=== PATIENT | female | born 1960 | race Hispanic/Latino ===

== ENCOUNTER → 2019-07-10 | Outpatient (CLI) | payer OTHER | LOC: MAMMO 13:38 | PROVIDERS: ATTEND Family Medicine | DX: Z12.31 Encounter for screening mammogram for malignant neoplasm of breast (principal) | CPT/HCPCS: 77067 ==

== ENCOUNTER → 2020-07-18 | Outpatient (CLI) | payer OTHER | LOC: MAMMO 09:45 | PROVIDERS: ATTEND Family Medicine | DX: Z12.31 Encounter for screening mammogram for malignant neoplasm of breast (principal) | CPT/HCPCS: 77067 ==

== ENCOUNTER 2021-04-26 20:11 | Emergency (ER) | payer OTHER ==
[~2021-04-26] VITALS: Ht 157.5 cm; Wt 87.5 kg
[2021-04-26] MEDS ORDERED: AZITHROMYCIN250 MG PO (20:36)
[2021-04-26] MEDS ORDERED: BENZONATATE200 MG PO (20:36)
[2021-04-26] MEDS ORDERED: ACETAMINOPHEN500 MG PO (20:36)
[2021-04-26] MEDS ORDERED: IBUPROFEN IB200 MG PO (20:36)
[2021-04-26] MEDS ORDERED: TAMIFLU75 MG PO (20:46)
== END 2021-04-26 20:55 | disposition home or self-care (01) ==
LOC: FSED 20:38
DX: R50.9 Fever, unspecified (principal); J10.1 Influenza due to other identified influenza virus with other respiratory manifestations; R00.0 Tachycardia, unspecified; R05.9 Cough, unspecified; R53.81 Other malaise; R53.83 Other fatigue; I10 Essential (primary) hypertension; E11.9 Type 2 diabetes mellitus without complications
CPT/HCPCS: 99282

== ENCOUNTER → 2021-07-03 | Outpatient (CLI) | payer OTHER ==
[~2021-07-03] MED LIST: ACETAMINOPHEN500 MG PO; AZITHROMYCIN250 MG PO; BENZONATATE200 MG PO; IBUPROFEN IB200 MG PO; TAMIFLU75 MG PO
== END ==
LOC: MRI 09:03
PROVIDERS: ATTEND Specialist
DX: M84.352A Stress fracture, left femur, initial encounter for fracture (principal); S83.222A Peripheral tear of medial meniscus, current injury, left knee, initial encounter

== ENCOUNTER 2021-09-14 09:10 | Outpatient (RCR) | payer OTHER | END 2021-09-20 | LOC: PT 09:10 | PROVIDERS: ATTEND Specialist | DX: M17.12 Unilateral primary osteoarthritis, left knee (principal); M62.81 Muscle weakness (generalized); M25.562 Pain in left knee; M25.662 Stiffness of left knee, not elsewhere classified; R26.2 Difficulty in walking, not elsewhere classified | CPT/HCPCS: 97139 ==

== ENCOUNTER 2021-09-18 13:54 | Outpatient (RCR) | payer OTHER | END 2021-09-20 | LOC: PT 13:54 | PROVIDERS: ATTEND Specialist | DX: M17.12 Unilateral primary osteoarthritis, left knee (principal) ==

== ENCOUNTER 2021-10-09 09:00 | Outpatient (RCR) | payer OTHER | END 2021-10-21 | LOC: PT 09:00 | PROVIDERS: ATTEND Specialist | DX: M17.12 Unilateral primary osteoarthritis, left knee (principal) ==

== ENCOUNTER → 2021-10-19 | Outpatient (CLI) | payer OTHER | LOC: MAMMO 10:59 | PROVIDERS: ATTEND Family Medicine | DX: Z12.31 Encounter for screening mammogram for malignant neoplasm of breast (principal) | CPT/HCPCS: 77067 ==

== ENCOUNTER 2021-10-23 07:14 | Outpatient (RCR) | payer OTHER | END 2021-11-20 | LOC: PT 07:14 | PROVIDERS: ATTEND Specialist | DX: M17.12 Unilateral primary osteoarthritis, left knee (principal) ==

== ENCOUNTER → 2023-10-27 | Outpatient (REF) | payer OTHER | LOC: RAD 13:17 | PROVIDERS: ATTEND Family Medicine | DX: M54.6 Pain in thoracic spine (principal); R07.81 Pleurodynia; G89.29 Other chronic pain | CPT/HCPCS: 71101; 72072 ==

== ENCOUNTER → 2023-12-02 | Day surgery (SDC) | payer OTHER ==
[2023-12-01 11:19] LABS: BASOPHILS # (AUTO) 0.1 (0.0-0.1); BASOPHILS % 0.6 % (0.0-1.0); EOSINOPHILS # (AUTO) 0.1 (0.0-0.4); EOSINOPHILS % 0.8 % (0.0-6.0); HEMATOCRIT 45.6 % (34.2-44.1); HEMOGLOBIN 14.7 g/dL (12.0-16.0); LYMPHOCYTES # (AUTO) 2.6 (1.0-3.2); LYMPHOCYTES % 32.9 % (18.0-39.1); MEAN CORPUSCULAR HEMOGLOBIN 31.8 pg (28-32); MEAN CORPUSCULAR HGB CONC 32.2 g/dL (31-35); MEAN CORPUSCULAR VOLUME 98.7 fL (81-99); MONOCYTES # (AUTO) 0.7 (0.2-0.8); MONOCYTES % 9.5 % (4.4-11.3); NEUTROPHILS # (AUTO) 4.4 (2.1-6.9); NEUTROPHILS % 56.1 % (38.7-80.0); PLATELET COUNT 258 x10e3/uL (140-360); RED BLOOD COUNT 4.62 x10e6/uL (3.6-5.1); WHITE BLOOD COUNT 7.77 x10e3/uL (4.8-10.8)
[2023-12-01 11:29] LABS: ALBUMIN 4.1 g/dL (3.5-5.0); ALBUMIN/GLOBULIN RATIO 1.2 (0.8-2.0); ANION GAP 13.8 mmol/L (8-16); BILIRUBIN,TOTAL 0.4 mg/dL (0.2-1.2); CREATININE, SERUM 0.74 mg/dL (0.57-1.11); POTASSIUM 3.8 mmol/L (3.5-5.1); TOTAL PROTEIN 7.4 g/dL (6.5-8.1)
[~2023-12-02] MED LIST changes: +ACETAMINOPHEN 1000 MG/100 ML 100 ML IV ONE; +BUPIVACAINE 0.25% 30ML SDV ONE; +BUPIVACAINE 0.5%/EPI 30 ML SDV INJ ONE; +DEXAMETHASONE SOD PHOS INJ 4 MG/ML SDV ONE; +EPHEDRINE SULFATE INJ 50 MG/ML VIAL ONE; +FENTANYL CITRATE/PF 100MCG/2 ML INJ ONE; +GLIPIZIDE ER5 MG PO; +JARDIANCE25 MG PO; +KETOROLAC TROMETHAMINE 30 MG/ML VIAL ONE; +LIDOCAINE HCL 2% LOCAL INJ 5 ML SDV VIAL INJ ONE; +LIPITOR10 MG PO; +OLMESARTAN-HCT1 EAC1 PO; +ONDANSETRON HCL INJ 2MG/ML 2ML 2 MG/ML VIAL ONE; +PROPOFOL IV EMULSION 10 MG/ML 20 ML VIAL ONE; +SEVOFLURANE INHAL SOLN 250 ML PEN BTL ONE
[2023-12-02] MEDS: LACTATED RINGER'S 1,000 ML ONE (08:51)
[2023-12-02 11:50] VITALS: BP 160/67; PULSE 72; RESP 16; O2SAT 96
== END | disposition home or self-care (01) ==
LOC: OR 06:54
PROVIDERS: ATTEND Surgery
DX: D17.1 Benign lipomatous neoplasm of skin and subcutaneous tissue of trunk (principal); D64.9 Anemia, unspecified; E11.9 Type 2 diabetes mellitus without complications; I10 Essential (primary) hypertension; E78.5 Hyperlipidemia, unspecified; F17.200 Nicotine dependence, unspecified, uncomplicated; Z01.810 Encounter for preprocedural cardiovascular examination; Z01.812 Encounter for preprocedural laboratory examination; Z01.818 Encounter for other preprocedural examination; Z79.84 Long term (current) use of oral hypoglycemic drugs; Z79.899 Other long term (current) drug therapy
CPT/HCPCS: 21930 ×3; 36415; 71046; 80053; 85025; 88304; 93005; J0131; J3010; J7121; J1100; J1885; J2003; J2405

== ENCOUNTER → 2024-05-29 | Outpatient (REF) | payer OTHER ==
[~2024-05-29] MED LIST changes: -ACETAMINOPHEN 1000 MG/100 ML 100 ML IV ONE; -BUPIVACAINE 0.25% 30ML SDV ONE; -BUPIVACAINE 0.5%/EPI 30 ML SDV INJ ONE; -DEXAMETHASONE SOD PHOS INJ 4 MG/ML SDV ONE; -EPHEDRINE SULFATE INJ 50 MG/ML VIAL ONE; -FENTANYL CITRATE/PF 100MCG/2 ML INJ ONE; -KETOROLAC TROMETHAMINE 30 MG/ML VIAL ONE; -LIDOCAINE HCL 2% LOCAL INJ 5 ML SDV VIAL INJ ONE; -ONDANSETRON HCL INJ 2MG/ML 2ML 2 MG/ML VIAL ONE; -PROPOFOL IV EMULSION 10 MG/ML 20 ML VIAL ONE; -SEVOFLURANE INHAL SOLN 250 ML PEN BTL ONE
== END ==
LOC: MAMMO 08:33
PROVIDERS: ATTEND Family Medicine
DX: Z12.31 Encounter for screening mammogram for malignant neoplasm of breast (principal)
CPT/HCPCS: 77067